=== PATIENT | female | born 1995 | race Caucasian/White ===

== ENCOUNTER 2016-11-20 19:48 | Emergency (ER) | payer BC ==
[~2016-11-20] VITALS: Ht 175.3 cm; Wt 108.7 kg
[~2016-11-20 19:48] MED LIST: SPR28 PO
[2016-11-20 19:50] VITALS: TEMP 36.7; Ht 175.3 cm; Wt 108.7 kg
[2016-11-20] MEDS ORDERED: ONDANSETRON INJ 2 MG/ML 2 ML VIAL IV STA (20:02)
[2016-11-20] MEDS ORDERED: SODIUM CHLORIDE 0.9% 1000ML 1,000 ML IV STA (20:02)
[2016-11-20] MEDS ORDERED: OPTIRAY 320 IV PRN (20:15)
--- NOTE | 2016-11-20 20:18 | EMERGENCY ROOM VISIT NOTE ---
History First contact with patient: 19:53 Chief Complaint: ABDOMINAL PAIN Stated Complaint: RT SIDE PAIN,NAUSEA History of Present Illness The patient is a 21 year old female who presents to the Emergency Room with complaints of abdominal pain. The patient states that yesterday, she had abdominal cramping throughout the day. She has a history of IBS and states that she attributed her symptoms to this. Today, the pain has worsened and moved to the right lower quadrant. She states it is a sharp pain and is worse with walking or bending over. She has associated nausea, but no vomiting. She denies any alleviating or aggravating factors. She has not taken any medication for the symptoms. She denies vaginal bleeding/discharge, changes in bowel movements or urinary symptoms. Her last menstrual period was 2 weeks ago. She rates her discomfort a 9/10. She denies any history of abdominal surgery. Review of Systems A complete 10 point review of systems was reviewed with the patient with pertinent positives and negatives as per history of present illness. All else were negative. Social History Smoking Status: Never Smoker Current/Historical Medications Scheduled Ethinyl Estrad/Norgestimate (Sprintec 28), 1 TAB PO DAILY Physical Exam Vital Signs Date Time Temp Pulse Resp B/P (MAP) Pulse Ox O2 Delivery O2 Flow Rate FiO2 11/20/16 22:04 69 18 135/84 99 11/20/16 20:55 72 16 126/83 99 Room Air 11/20/16 19:50 36.7 86 18 159/112 100 Room Air Physical Exam VITALS: Vitals are noted on the nurse's note and reviewed by myself. Vital signs stable. GENERAL: This is a 21-year-old female, in no acute distress, nondiaphoretic, well-developed well-nourished. MOUTH: Mucous membranes moist. Tonsils are not enlarged. Pharynx without erythema or exudate. Uvula midline. Airway patent. Tongue does not deviate. HEART: Regular rate and rhythm without murmurs gallops or rubs. LUNGS: Clear to auscultation bilaterally without wheezes, rales or rhonchi. ABDOMEN: Positive bowel sounds x 4. Soft, moderate tenderness to palpation of the right lower quadrant. No guarding or rebound tenderness. Positive Rovsing sign. NEURO: Patient was alert and oriented to person place and time. Medical Decision & Procedures ER Provider Diagnostic Interpretation: CT ABD/PELVIS IV CONTRAST ONLY FINDINGS: Lower chest: The heart is normal in size and configuration, without pericardial effusion. The lung bases and pleural spaces are clear. Liver: There is mild hepatic steatosis. No focal masses are visualized. Gallbladder: Unremarkable. Spleen: Normal in size and attenuation. Pancreas: Unremarkable. Adrenal glands: Unremarkable. Kidneys: There is symmetric renal cortical enhancement. The kidneys are normal in size without hydronephrosis. Bowel: There are no transition zones indicate bowel obstruction. The appendix appears normal. There is no acute diverticulitis. Peritoneum: There is no intraperitoneal free air or abdominal ascites. Vasculature: The abdominal aorta is normal in course and caliber. Adenopathy: None. Pelvic viscera: There is a 58 x 52 x 15 mm right ovarian cyst. Skeletal structures: No destructive osseous lesions are seen. IMPRESSION: 1. No evidence of bowel obstruction. No evidence of free air 2. Hepatic steatosis 3. Normal appendix 4. 58 mm right ovarian cyst Laboratory Results 11/20/16 20:20 Red Blood Count 4.58, Mean Corpuscular Volume 88.6, Mean Corpuscular Hemoglobin 30.1, Mean Corpuscular Hemoglobin Concent 34.0, Mean Platelet Volume 8.7, Neutrophils (%) (Auto) 49.4, Lymphocytes (%) (Auto) 40.6, Monocytes (%) (Auto) 6.3, Eosinophils (%) (Auto) 3.2, Basophils (%) (Auto) 0.3, Neutrophils # (Auto) 4.25, Lymphocytes # (Auto) 3.50, Monocytes # (Auto) 0.54, Eosinophils # (Auto) 0.28, Basophils # (Auto) 0.03 11/20/16 20:20 Test 11/20/16 20:20 White Blood Count 8.62 K/uL (4.8-10.8) Red Blood Count 4.58 M/uL (4.2-5.4) Hemoglobin 13.8 g/dL (12.0-16.0) Hematocrit 40.6 % (37-47) Mean Corpuscular Volume 88.6 fL (80-100) Mean Corpuscular Hemoglobin 30.1 pg (25-34) Mean Corpuscular Hemoglobin Concent 34.0 g/dl (32-36) Platelet Count 378 K/uL (130-400) Mean Platelet Volume 8.7 fL (7.4-10.4) Neutrophils (%) (Auto) 49.4 % Lymphocytes (%) (Auto) 40.6 % Monocytes (%) (Auto) 6.3 % Eosinophils (%) (Auto) 3.2 % Basophils (%) (Auto) 0.3 % Neutrophils # (Auto) 4.25 K/uL (1.4-6.5) Lymphocytes # (Auto) 3.50 K/uL (1.2-3.4) Monocytes # (Auto) 0.54 K/uL (0.11-0.59) Eosinophils # (Auto) 0.28 K/uL (0-0.5) Basophils # (Auto) 0.03 K/uL (0-0.2) RDW Standard Deviation 40.6 fL (36.4-46.3) RDW Coefficient of Variation 12.7 % (11.5-14.5) Immature Granulocyte % (Auto) 0.2 % Immature Granulocyte # (Auto) 0.02 K/uL (0.00-0.02) Urine Color YELLOW Urine Appearance CLEAR (CLEAR) Urine pH 6.0 (4.5-7.5) Urine Specific Rice 1.015 (1.000-1.030) Urine Protein NEG (NEG) Urine Glucose (UA) NEG (NEG) Urine Ketones NEG (NEG) Urine Occult Blood NEG (NEG) Urine Nitrite NEG (NEG) Urine Bilirubin NEG (NEG) Urine Urobilinogen NEG (NEG) Urine Leukocyte Esterase TRACE (NEG) Urine WBC (Auto) 1-5 /hpf (0-5) Urine RBC (Auto) 0-4 /hpf (0-4) Urine Hyaline Casts (Auto) 1-5 /lpf (0-5) Urine Epithelial Cells (Auto) >30 /lpf (0-5) Urine Bacteria (Auto) 1+ (NEG) Urine Test NEG (NEG) Anion Gap 9.0 mmol/L (3-11) Est Creatinine Clear Calc Drug Dose 135.5 ml/min Estimated GFR () 111.1 Estimated GFR (Non- 95.9 BUN/Creatinine Ratio 13.4 (10-20) Calcium Level 9.4 mg/dl (8.5-10.1) Total Bilirubin 0.2 mg/dl (0.2-1) Aspartate Amino Transf (AST/SGOT) 17 U/L (15-37) Alanine Aminotransferase (ALT/SGPT) 32 U/L (12-78) Alkaline Phosphatase 59 U/L (45-117) Total Protein 7.6 gm/dl (6.4-8.2) Albumin 3.7 gm/dl (3.4-5.0) Globulin 3.9 gm/dl (2.5-4.0) Albumin/Globulin Ratio 0.9 (0.9-2) Lipase 193 U/L (73-393) Medications Administered Medications (Trade) Dose Ordered Sig/Isrrael Route Start Time Stop Time Status Last Admin Dose Admin Sodium Chloride 1,000 ml @ 999 mls/hr Q1H1M STAT IV 11/20/16 20:02 11/20/16 21:02 DC 11/20/16 20:19 999 MLS/HR Ondansetron HCl (Zofran Inj) 4 mg NOW STAT IV 11/20/16 20:02 11/20/16 20:05 DC 11/20/16 20:20 4 MG Morphine Sulfate (MoRPHine SULFATE INJ) 6 mg NOW STAT IV 11/20/16 20:02 11/20/16 20:05 DC 11/20/16 20:20 3 MG ED Course The patient was evaluated as above. Labs were drawn and IV access was obtained. Patient was medicated with 6 mg morphine, 4 mg Zofran and 1 L normal saline solution. CT of the abdomen and pelvis was performed and read by radiology as above. Patient was reevaluated and felt much better. Findings were discussed with patient at this time. She will be discharged. Discharge instructions were reviewed with the patient. The patient verbalized understanding of my assessment and treatment plan and was discharged home in good condition. Medical Decision Differential diagnosis includes appendicitis, ovarian cyst, ovarian torsion, kidney stone, urinary tract infection, among others. The patient is a 21-year-old female who presents today complaining of right lower quadrant abdominal pain. Labs were unremarkable. There is no leukocytosis. CT of the abdomen and pelvis was performed and showed a large right ovarian cyst. I am not suspicious of torsion. Patient will be treated conservatively and was instructed to follow-up with her DIRECTOR OF RECRUITMENT. She was educated regarding the risk of torsion and will return as needed. The patient and her mother were agreeable to this treatment plan. Based on the patient's presentation and work up, I feel the patient is stable for outpatient treatment. The patient was educated to return to the emergency department for any worsening of their current condition or new/concerning symptoms. She will follow up with her DIRECTOR OF RECRUITMENT. Medication Reconcilliation Current Medication List: was personally reviewed by me Blood Pressure Screening Patient's blood pressure: Elevated blood pressure Blood pressure disposition: Elevated BP felt to be situational Impression Primary Impression: Ovarian cyst Departure Information Dispostion Home / Self-Care Condition GOOD Referrals Wilmer Mendez M.D. (PCP) Patient Instructions My [facility] Additional Instructions You have been treated in the Emergency Department for your Abdominal Pain. Laboratory results and imaging studies have ruled out any emergent causes for your abdominal pain which would warrant admission or surgery. Ultrasound did show a right-sided ovarian cyst. For pain control, you can use the following [id number] medicines (if >12 yo): - Regular strength (325mg/tab) Tylenol (acetaminophen) 2 tabs every 4-6 hours as needed. Do not exceed 12 tablets in a 24 hour period. Avoid taking more than 4 grams (4000 mg) of Tylenol per day. This includes any other sources of acetaminophen you may take on a regular basis. - Regular strength (200 mg/tab) Advil (ibuprofen) 4 tabs every 6 hours as needed. Do not exceed a dose of 3200 mg per day. Drink plenty of water and stay well hydrated. Call your DIRECTOR OF RECRUITMENT to schedule follow-up. Return to the emergency department if your symptoms persist despite treatment plan outlined above or if the following symptoms occur: Significantly worsening abdominal pain, vomiting, fevers, or any other new/concerning symptoms.
[2016-11-20] MEDS: MoRPHine SULFATE 10 MG/ML CARP/VIAL IV STA (20:20)
[2016-11-20 20:34] LABS: BASO % 0.3 %; BASO ABS # 0.03 K/uL (0-0.2); COMPLETE YES; EOS % 3.2 %; HEMATOCRIT 40.6 % (37-47); IG% 0.2 %; LYMPH % 40.6 %; MEAN CELL VOLUME 88.6 fL (80-100); MEAN CORPUSCULAR HEMOGLOBIN 30.1 pg (25-34); MEAN PLATELET VOLUME 8.7 fL (7.4-10.4); MONO % 6.3 %; NEUT % 49.4 %; PLATELET COUNT 378 K/uL (130-400); RED BLOOD COUNT 4.58 M/uL (4.2-5.4); WHITE BLOOD COUNT 8.62 K/uL (4.8-10.8)
[2016-11-20 20:44] LABS: URINE APPEARANCE CLEAR (CLEAR); URINE BILIRUBIN NEG (NEG); URINE COLOR YELLOW; URINE EPITHELIAL CELL AUTO >30 /lpf (0-5); URINE NITRITE NEG (NEG); URINE SPECIFIC GRAVITY 1.015 (1.000-1.030); UROBILINOGEN NEG (NEG); ZZUR CULT IF INDIC CLEAN CATCH YES
[2016-11-20 20:51] LABS: BUN/CREATININE RATIO 13.4 (10-20); CALCIUM 9.4 mg/dl (8.5-10.1); CREATININE 0.87 mg/dl (0.60-1.20); POTASSIUM 4.1 mmol/L (3.5-5.1)
[2016-11-20 20:52] LABS: MANUAL MICROSCOPIC REQUIRED? NO; REVIEW REQ? NO
[2016-11-20 20:54] LABS: ALB/GLOB RATIO 0.9 (0.9-2)
--- NOTE | 2016-11-20 21:21 | DIAGNOSTIC IMAGING REPORT ---
CT ABD/PELVIS IV CONTRAST ONLY CLINICAL HISTORY: Right lower quadrant abdominal pain. Nausea. COMPARISON STUDY: None. TECHNIQUE: Following the IV administration of 93 mL of Optiray-320, CT scan of the abdomen and pelvis was performed from the lung bases to the proximal femurs. Images are reviewed in the axial, sagittal, and coronal planes. IV contrast was administered without complication. A dose lowering technique was utilized adhering to the principles of ALARA. CT DOSE: 1258.90 mGy.cm FINDINGS: Lower chest: The heart is normal in size and configuration, without pericardial effusion. The lung bases and pleural spaces are clear. Liver: There is mild hepatic steatosis. No focal masses are visualized. Gallbladder: Unremarkable. Spleen: Normal in size and attenuation. Pancreas: Unremarkable. Adrenal glands: Unremarkable. Kidneys: There is symmetric renal cortical enhancement. The kidneys are normal in size without hydronephrosis. Bowel: There are no transition zones indicate bowel obstruction. The appendix appears normal. There is no acute diverticulitis. Peritoneum: There is no intraperitoneal free air or abdominal ascites. Vasculature: The abdominal aorta is normal in course and caliber. Adenopathy: None. Pelvic viscera: There is a 58 x 52 x 15 mm right ovarian cyst. Skeletal structures: No destructive osseous lesions are seen. IMPRESSION: 1. No evidence of bowel obstruction. No evidence of free air 2. Hepatic steatosis 3. Normal appendix 4. 58 mm right ovarian cyst Electronically signed by: Jose Raul Cabrales M.D. 11/20/2016 9:20 PM Dictated Date/Time: 11/20/2016 9:16 PM
[2016-11-20 22:04] VITALS: BP 135/84; PULSE 69; O2SAT 99
== END 2016-11-20 22:06 | disposition home or self-care (01) ==
LOC: C.EDB 19:49 → C.EDC 22:06
DX: N83.201 Unspecified ovarian cyst, right side (principal); K76.0 Fatty (change of) liver, not elsewhere classified

== ENCOUNTER → 2017-04-28 | Outpatient (CLI) | payer BC ==
[~2017-04-28] MED LIST changes: +IMD/2 PO
== END | disposition home or self-care (01) ==
LOC: C.LABSPEC 10:20
PROVIDERS: ATTEND Physician Assistant
DX: Z01.419 Encounter for gynecological examination (general) (routine) without abnormal findings (principal)

== ENCOUNTER → 2017-04-28 | Outpatient (CLI) | payer BC | END | disposition home or self-care (01) | LOC: C.PAPS 11:58 | PROVIDERS: ATTEND Physician Assistant | DX: Z01.419 Encounter for gynecological examination (general) (routine) without abnormal findings (principal); R87.611 Atypical squamous cells cannot exclude high grade squamous intraepithelial lesion on cytologic smear of cervix (ASC-H) ==

== ENCOUNTER → 2017-06-28 | Outpatient (CLI) | payer BC ==
[~2017-06-28] MED LIST changes: -IMD/2 PO
== END | disposition home or self-care (01) ==
LOC: C.PATHSPEC 15:34
PROVIDERS: ATTEND Obstetrics & Gynecology
DX: N87.0 Mild cervical dysplasia (principal)

== ENCOUNTER → 2017-06-28 | Outpatient (CLI) | payer BC ==
--- NOTE | 2017-06-28 11:22 | DIAGNOSTIC IMAGING REPORT ---
TEMPORAL ORB/SELLA/TEMP W/O CLINICAL HISTORY: 22 years-old Female presenting with M26.609 TMJ (temporomandibular joint syndrome)SEVERE RIGHT-SIDED, right otalgia. TECHNIQUE: Multidetector CT of the temporal bones was performed without the use of intravenous contrast. IV contrast: None. A dose lowering technique was used consistent with the principles of ALARA (as low as reasonably achievable). COMPARISON: None. CT DOSE (mGy.cm): The estimated cumulative dose is 464.39 mGy.cm. FINDINGS: Special Procedure Technologist topogram: Unremarkable. Temporomandibular joints intact. No evidence of advanced degenerative change of the mandibular joints. No mandibular fracture. Orbits intact. Mild polypoid mucosal thickening in the left maxillary sinus. Remainder of paranasal sinuses and mastoid air cells clear. Inner ears structures normal bilaterally. No ossicular disruption in the middle ears. External auditory canal contains cerumen on the right. Temporal mandibular membranes normal bilaterally. Upper cervical spine normal. No convincing evidence of periapical lucency or endodontic disease of the maxillary teeth. Mandibular teeth not visualized. IMPRESSION: No abnormality of the temporomandibular joints. Essentially normal CT examination of the temporal bones apart from cerumen in the right external auditory canal. Electronically signed by: Wilmer Strong M.D. 06/28/2017 11:21 AM Dictated Date/Time: 06/28/2017 11:17 AM
== END | disposition home or self-care (01) ==
LOC: C.CTS 10:47
PROVIDERS: ATTEND Physician Assistant
DX: M26.609 Unspecified temporomandibular joint disorder, unspecified side (principal); H92.01 Otalgia, right ear

== ENCOUNTER → 2017-08-16 | Outpatient (CLI) | payer BC ==
--- NOTE | 2017-08-16 15:13 | MAMMOGRAPHY REPORT ---
ULTRASOUND OF LEFT BREAST: 08/16/2017 CLINICAL HISTORY: The patient reports a tender lump in her left breast for approximately 1.5 weeks. She just finished her menstrual period. COMPARISON: No prior exams were available for comparison. TECHNIQUE: Real-time targeted ultrasound of the left breast was performed. FINDINGS: Real-time, high-resolution targeted ultrasound was performed of the area of the palpable promise mp pointed out by the patient, in the left breast at approximately 2:00, 6 cm from the nipple. Sonog raphically normal tissue is seen in this region, without evidence of a mass or other suspicious sonog raphic abnormality. IMPRESSION: ACR BI-RADS CATEGORY 1: NEGATIVE No suspicious sonographic abnormality at the site of the palpable left 2:00 breast lump pointed out b y the patient. There is no sonographic evidence of malignancy. Recommend clinical follow-up; any d ecision to biopsy should be based on clinical grounds. The patient was verbally notified of the resu lts. Kathia Lancaster M.D. ah/:08/16/2017 09:12:25 Machine Packager: Kathia Lancaster MD, [facility] letter sent: Normal 1/2 BI-RADS Code: ACR BI-RADS Category 1: Negative
== END | disposition home or self-care (01) ==
LOC: C.MAMM 08:47
PROVIDERS: ATTEND Physician Assistant
DX: N63.21 Unspecified lump in the left breast, upper outer quadrant (principal)

== ENCOUNTER → 2017-12-18 | Outpatient (CLI) | payer BC ==
[~2017-12-18] MED LIST changes: +IMD/2 PO
== END | disposition home or self-care (01) ==
LOC: C.PAPS 14:55
PROVIDERS: ATTEND Obstetrics & Gynecology
DX: N87.0 Mild cervical dysplasia (principal)

== ENCOUNTER 2021-11-03 07:42 | Inpatient (IN) ==
[2021-11-03] MEDS ORDERED: OXYTOCIN 30 UNITS/500 ML BAG IV PRN ×2 (08:35)
--- NOTE | 2021-11-03 08:45 | History & Physical Report ---
Date of Service November 03, 2021 Assessment & Plan (1) Insulin controlled gestational diabetes mellitus (GDM) during : Plan: 26 y/o G1 at 39 4/7 wga presents for IOL for A2GDM VSS Fetus cat 1 Labor - will start pit A2GDM - just had bagel and BG 129, will recheck. If ok, q4 while latent GBS neg epidural PRN Admission and Anticipated Discharge Date Admission Date: November 03, 2021 History of Present Illness Chief Complaint: IOL Primary Care Provider: Wilmer Mendez MD 26 y/o G1 at 39 4/7 wga presents for IOL for A2GDM. +FM; denies regular ctx, LOF, VB. 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 neg cyto, hx colpo denies hx STIs Allergies Allergy/AdvReac Type Severity Reaction Status Date / Time amoxicillin [From Augmentin] AdvReac Intermediate Nausea Verified 11/02/21 10:29 clavulanic acid AdvReac Intermediate Nausea Verified 11/02/21 10:29 [From Augmentin] Home Medications Medication Instructions Recorded Confirmed Type prenat.vits,mikel,ofp-stdg-xwigl 1 tab PO QPM 03/12/21 11/03/21 History acetone (urine) test (Ketone Urine #50 ea 06/21/21 11/02/21 Rx Test) pen needle, diabetic 32 gauge x #50 ea 08/27/21 11/02/21 Rx 5/32" (BD Ultra-Fine Matilde Pen Needle) insulin NPH isoph U-100 human 100 15 unit SUBCUT .at bed time 10/07/21 11/03/21 History unit/mL (3 mL) subcutaneous pen (Novolin N Flexpen) Patient History Medical History Acanthosis nigricans Allergic rhinitis Anxiety Benign paroxysmal vertigo Dysmenorrhea Dysmetabolic syndrome X Elevated LFTs ETD (eustachian tube dysfunction) Hyperinsulinemia Menorrhagia with regular cycle Mild dysplasia of cervix (ABRAHAM I) Neuralgia, geniculate Pigmented purpura Sludge in gallbladder TMJ (temporomandibular joint syndrome) Varicella vaccination Surgical History History of ear surgery S/P tonsillectomy and adenoidectomy S/P wisdom tooth extraction Family History Unknown Breast cancer Grandmother Diabetes Colon cancer Uncle Diabetes Uncle Diabetes Colon cancer Aunt Breast cancer Grandmother Breast cancer Uncle Myocardial infarction Denies family history of Ovarian cancer Prostate cancer Social History Smoking Status: Never smoker Second Hand Exposure: No; Hx Alcohol Use: No Hx Substance Use: No Preferred Language: Bolivian Communication Ability: Effective Visual Impairment: Diminished Hearing Ability: Normal Harbor Tug Captain Required: No Beliefs That Will Affect Care: None marital status: marital status details: VARUN Jean Baptiste [phone] Current Living Situation: Spouse Current Living Situation Comment: lives with spouse, dog current occupational status: employed current occupation: [employer] How many Children do You have: 0 Feels Safe at Home: Yes Safety Concerns: Feels Safe At This Time Childhood Exposure to Second-Hand Smoke: Yes caffeine: No Dental Care, Regularly: Yes Physical Activity Frequency: 5-6 Times per Week Seatbelt Use: always Sunscreen Use: Yes Assistive Devices: None Physical Exam Constitutional: WD/WN, vitals as above Respiratory: normal respiratory effort; no respiratory distress and no labored breathing Genitourinary: OB Exam Abdomen: + vertex and + estimated weight (8-9) Manual OB Exam: + cervical dilation 3 cm, + cervical effacement 50% and + station -2 OB Exam Monitor Tracing: + external FHT monitor used, + external uterine monitor used (irritability) and + category I (145/mod/+accel/-decel) Results & Data ([facility]) Vital Signs (Past 12 Hours) Vital Signs Temp Pulse Resp BP 11/03/21 08:30 82 133/81 11/03/21 07:51 98.2 F 18 Laboratory Results OB Labs: Blood Type O Positive 03/31/21 Antibody Screen NEGATIVE 03/31/21 Hemoglobin 11.7 g/dL (12.0-16.0) L 10/07/21 Hematocrit 34.9 % (37-47) L 10/07/21 Mean Corpuscular Volume 86.2 fL (80-100) 10/07/21 Platelet Count 312 K/uL (130-400) 10/07/21 Rubella IgG Antibody Immune (Immune) 03/31/21 Rapid Plasma Reagin Nonreactive (Nonreactive) 03/31/21 Hepatitis B Surface Antigen Neg (Neg) 03/31/21 Hepatitis C Antibody Neg (Neg) 03/31/21 HIV (1&2) Ab and P24 Ag, 4th Gener Neg (Neg) 03/31/21 Glucose 1 Hour 50 gm Load 153 mg/dl (70-130) H 05/26/21 Maternal Serum Alpha Fetoprotein 19.9 ng/mL 05/26/21 OB Optional Labs: Chlamydia trachomatis RNA NOT DETECTED (NOT DETECTED) 03/31/21 Neisseria gonorrhoeae RNA NOT DETECTED (NOT DETECTED) 03/31/21 Thyroid Stimulating Hormone (TSH) 1.620 uIu/ml (0.300-4.500) 09/02/20 Alpha Fetoprotein Triple Screen SEE NOTE 05/26/21 Labs Reviewed: gbs neg afp neg cf/sma neg low risk panorama Diagnostic Findings 10/21 EFW 3655g 88% ant plac Coding Level of Care Code None Diagnoses Insulin controlled gestational diabetes mellitus (GDM) during O24.414
[2021-11-03] MEDS: LACTATED RINGER'S 1,000 ML IV PRN ×3 (09:36→19:17)
[2021-11-03 09:45] LABS: Hematocrit (blood only) 33.7 % (37-47); Hemoglobin 11.3 g/dL (12.0-16.0); Mean Corpuscular Hemoglobin 28.8 pg (25-34); Mean Corpuscular Hgb Conc 33.5 g/dL (32-36); Mean Corpuscular Volume 85.8 fL (80-100); Mean Platelet Volume 9.3 fL (7.4-10.4); Platelet Count 331 K/uL (130-400); RDW Coefficient of Variation 14.1 % (11.5-14.5); RDW Standard Deviation 43.9 fL (36.4-46.3); Red Blood Count 3.93 M/uL (4.2-5.4); White Blood Count 10.14 K/uL (4.8-10.8)
--- NOTE | 2021-11-03 13:06 | Labor Progress Brief Note ---
Date of Service November 03, 2021 Subjective some back pain Assessment & Plan (1) Insulin controlled gestational diabetes mellitus (GDM) during : Plan: 26 y/o G1 at 39 4/7 wga presents for IOL for A2GDM VSS Fetus cat 1 Labor - pit at12, now s/p arom A2GDM - BG normal, q4 in latent labor GBS neg epidural PRN Admission and Anticipated Discharge Date Admission Date: November 03, 2021 Physical Exam Genitourinary: Manual OB Exam: + cervical dilation (3-4), + cervical effacement 50%, + station -2 and + amniotic fluid (arom clear) OB Exam Monitor Tracing: + external FHT monitor used, + external uterine monitor used (q4, difficult to trace) and + category I (125/mod/+accel/-decel) Results & Data ([facility]) Vital Signs (Past 12 Hours) Vital Signs Temp Pulse Resp BP 11/03/21 12:43 67 124/72 11/03/21 12:00 98.2 F 11/03/21 10:42 74 134/81 11/03/21 10:30 18 11/03/21 09:45 76 135/86 11/03/21 08:30 82 133/81 11/03/21 08:05 98.2 F 18 11/03/21 07:51 98.2 F 18 Coding Level of Care Code None Diagnoses Insulin controlled gestational diabetes mellitus (GDM) during O24.414
[2021-11-03] MEDS ORDERED: ePHEDrine sulfate 50 MG/ML AMP ONE (14:58)
[2021-11-03] MEDS ORDERED: fentaNYL citrate 100 MCG/2 ML VIAL ONE ×2 (14:59→21:44)
[2021-11-03] MEDS ORDERED: fentaNYL 2MCG/ML ROPIVACAINE 1.25MG/ML 100 ML BAG EPI ONE (14:59)
[2021-11-03] MEDS ORDERED: LIDOCAINE 2%/EPINEPHRINE 1:200,000 20 ML SDV ONE (14:59)
[2021-11-03] MEDS ORDERED: SODIUM CHLORIDE 0.9% INJ 10 ML VIAL ONE (14:59)
[2021-11-03] MEDS ORDERED: BUPIVACAINE 0.25% 30 ML VIAL ONE ×2 (14:59→21:44)
[2021-11-03] MEDS ORDERED: NALBUPHINE HCL INJ 10 MG/ML AMP IV PRN (15:06)
[2021-11-03] MEDS ORDERED: NALOXONE HCL 1 MG in SODIUM CHLORIDE 0.9% 1000ML 1,000 ML IV PRN (15:06)
[2021-11-03] MEDS ORDERED: NALOXONE HCL 0.4 MG/1 ML VIAL/CARP IV PRN (15:06)
[2021-11-03] MEDS ORDERED: fentaNYL 2MCG/ML ROPIVACAINE 1.25MG/ML 100 ML BAG EPI PRN (15:06)
[2021-11-03] MEDS ORDERED: ONDANSETRON INJ 2 MG/ML 2 ML VIAL IV PRN (15:06)
[2021-11-03] MEDS ORDERED: diphenhydrAMINE 50 MG/ML VIAL IV PRN (15:06)
[2021-11-03] MEDS ORDERED: ePHEDrine sulfate 50 MG/ML AMP IV PRN (15:06)
--- NOTE | 2021-11-03 15:54 | Anesthesiology Consultation ---
Date of Service November 03, 2021 Assessment & Plan ASA ASA3 Proposed Anesthesia Anesthesia Type: General Risk / Benefits Reviewed With: PT / POA / Parent / Guardian, Accepts Plan and Informed Consent Obtained History Height/Weight Height: 5 ft 9 in Weight: 123.377 kg Allergies Allergy/AdvReac Type Severity Reaction Status Date / Time amoxicillin [From Augmentin] AdvReac Intermediate Nausea Verified 11/02/21 10:29 clavulanic acid AdvReac Intermediate Nausea Verified 11/02/21 10:29 [From Augmentin] Medications Home Medications Medication Instructions Recorded Confirmed Last Taken prenat.vits,mikel,bbr-vctc-eigxg 1 tab PO QPM 03/12/21 11/03/21 11/03/21 acetone (urine) test (Ketone Urine #50 ea 06/21/21 11/02/21 Unknown Test) pen needle, diabetic 32 gauge x #50 ea 08/27/21 11/02/21 Unknown " (BD Ultra-Fine Matilde Pen Needle) insulin NPH isoph U-100 human 100 15 unit SUBCUT .at bed time 10/07/21 11/03/21 11/02/21 unit/mL (3 mL) subcutaneous pen (Novolin N Flexpen) Active Medications Generic Name Dose Route Start Last Admin Trade Name Freq PRN Reason Stop Dose Admin Lactated Ringer's 1,000 mls @ 125 mls/hr 11/03/21 08:35 11/03/21 15:21 Lr IV 11/05/21 08:34 999 mls/hr .Q8H PRN Administration L&D Protocol Protocol Oxytocin 30 units in 500 mls @ 16 mls/hr 11/03/21 08:35 11/03/21 14:45 Pitocin IV 11/05/21 08:34 0.96 units/hr .Q24H PRN 16 mls/hr Labor Induction/Augmentation Titration Protocol 0.96 UNITS/HR Past Medical History Medical History Acanthosis nigricans Allergic rhinitis Anxiety Benign paroxysmal vertigo Dysmenorrhea Dysmetabolic syndrome X Elevated LFTs ETD (eustachian tube dysfunction) Hyperinsulinemia Menorrhagia with regular cycle Mild dysplasia of cervix (ABRAHAM I) Neuralgia, geniculate Pigmented purpura Sludge in gallbladder TMJ (temporomandibular joint syndrome) Varicella vaccination Exercise / Class Metabolic Activity II 4-5 Yardwork/Stairs/Walk up hill Past Family History Family History Unknown Breast cancer Grandmother Diabetes Colon cancer Uncle Diabetes Uncle Diabetes Colon cancer Aunt Breast cancer Grandmother Breast cancer Uncle Myocardial infarction Denies family history of Ovarian cancer Prostate cancer Past Surgical History Surgical History History of ear surgery S/P tonsillectomy and adenoidectomy S/P wisdom tooth extraction Past Anesthesia History No Hx of Anesthesia Complications and No Family Hx of Anesthesia Complications History of PONV No Hx of PONV and No Hx of Motion Sickness Social History Smoking Status: Never smoker Hx Alcohol Use: No Alcohol type: beer, wine and hard liquor Hx Substance Use: No Review of Systems denies fever/cough/ colds/ chest pain/ SOB/ GARCÍA denies GARCÍA Physical Exam Vital Signs Last Vital Signs Temp 36.8 C 11/03/21 12:00 Pulse 67 11/03/21 15:50 Resp 18 11/03/21 15:42 BP 139/71 11/03/21 15:49 Pulse Ox 100 11/03/21 15:50 ENMT Mouth: no TMJ abnormality and no dentition abnormality Thyromental Distance: > or= 3.5 Finger Breadths Mallampati Class: II Neck neck extension not limited Respiratory normal respiratory effort; no respiratory distress Auscultation: lungs clear to auscultation bilaterally Cardiovascular Rate/Rhythm: regular rate and regular rhythm Neurologic moves all extremities Psychiatric Orientation: alert and oriented x 3 Testing Laboratory Results 11/03/21 09:16 11/03/21 11/03/21 11/03/21 10:57 09:45 08:38 POC Glucose 80 124 H 129 H
--- NOTE | 2021-11-03 16:59 | Labor Progress Brief Note ---
Date of Service November 03, 2021 Subjective comfortable w/ epidural Assessment & Plan (1) Insulin controlled gestational diabetes mellitus (GDM) during : Plan: 26 y/o G1 at 39 4/7 wga presents for IOL for A2GDM VSS Fetus cat 1 Labor - s/p srom, pit at 14. Continue induction A2GDM - BG normal, q4 in latent labor GBS neg epidural in place Admission and Anticipated Discharge Date Admission Date: November 03, 2021 Physical Exam Genitourinary: Manual OB Exam: + cervical dilation 4 cm, + cervical effacement 50% and + station -2 (progression noted) OB Exam Monitor Tracing: + external FHT monitor used, + external uterine monitor used (q4) and + category I (120/mod/+accel/-decel) Results & Data ([facility]) Vital Signs (Past 12 Hours) Vital Signs Temp Pulse Resp BP Pulse Ox 11/03/21 16:55 63 97 11/03/21 16:53 58 L 133/69 11/03/21 16:50 60 99 11/03/21 16:45 58 L 100 11/03/21 16:40 66 100 11/03/21 16:37 54 L 127/66 11/03/21 16:35 62 100 11/03/21 16:30 56 L 18 100 11/03/21 16:25 59 L 100 11/03/21 16:22 60 128/71 11/03/21 16:20 59 L 100 11/03/21 16:15 70 100 11/03/21 16:10 67 100 11/03/21 16:07 64 130/70 11/03/21 16:05 60 128/65 100 11/03/21 16:03 58 L 125/71 11/03/21 16:01 57 L 127/69 11/03/21 16:00 56 L 100 11/03/21 15:59 59 L 130/69 11/03/21 15:57 55 L 128/68 11/03/21 15:55 60 133/71 99 11/03/21 15:53 57 L 133/67 11/03/21 15:51 60 135/71 11/03/21 15:50 67 100 11/03/21 15:49 61 139/71 11/03/21 15:47 58 L 133/69 11/03/21 15:45 61 143/77 H 100 07/06/22 15:43 60 137/75 11/03/21 15:42 18 11/03/21 15:40 77 100 11/03/21 15:38 58 L 130/74 11/03/21 15:35 75 99 11/03/21 15:30 72 100 11/03/21 15:25 70 100 11/03/21 15:20 63 155/89 H 100 11/03/21 15:15 70 100 11/03/21 15:05 98.2 F 18 11/03/21 13:48 63 147/83 H 11/03/21 12:43 67 124/72 11/03/21 12:00 98.2 F 11/03/21 10:42 74 134/81 11/03/21 10:30 18 11/03/21 09:45 76 135/86 11/03/21 08:30 82 133/81 11/03/21 08:05 98.2 F 18 11/03/21 07:51 98.2 F 18 Coding Level of Care Code None Diagnoses Insulin controlled gestational diabetes mellitus (GDM) during O24.414
--- NOTE | 2021-11-03 19:34 | Labor Progress Brief Note ---
Date of Service November 03, 2021 Subjective comfortable w/ epidural Assessment & Plan (1) Insulin controlled gestational diabetes mellitus (GDM) during : Plan: 26 y/o G1 at 39 4/7 wga presents for IOL for A2GDM VSS Fetus cat 1 Labor - s/p srom, pit at 18. progress noted, continue induction A2GDM - BG normal, q4 in latent labor GBS neg epidural in place Admission and Anticipated Discharge Date Admission Date: November 03, 2021 Physical Exam Genitourinary: Manual OB Exam: + cervical dilation (4-5), + cervical effacement 70% and + station -1 OB Exam Monitor Tracing: + external FHT monitor used, + intra-uterine pressure catheter used (placed) and + category I (125/mod/+accel/was having early decels) Results & Data ([facility]) Vital Signs (Past 12 Hours) Vital Signs Temp Pulse Resp BP Pulse Ox 11/03/21 19:30 63 99 11/03/21 19:25 55 L 99 11/03/21 19:23 57 L 135/61 11/03/21 19:20 59 L 100 11/03/21 19:15 87 100 11/03/21 19:10 84 99 11/03/21 19:07 54 L 131/82 11/03/21 19:05 60 100 11/03/21 19:02 97.5 F L 20 11/03/21 19:00 62 18 100 11/03/21 18:55 72 100 11/03/21 18:52 55 L 138/85 11/03/21 18:50 61 99 11/03/21 18:45 56 L 98 11/03/21 18:40 57 L 99 11/03/21 18:37 54 L 141/85 H 11/03/21 18:35 57 L 98 11/03/21 18:30 59 L 18 100 11/03/21 18:25 58 L 100 11/03/21 18:23 58 L 141/88 H 11/03/21 18:20 60 100 11/03/21 18:15 62 100 11/03/21 18:10 55 L 100 11/03/21 18:08 55 L 129/82 11/03/21 18:05 58 L 100 11/03/21 18:00 65 18 99 11/03/21 17:55 49 L 100 11/03/21 17:54 46 L 121/62 11/03/21 17:50 53 L 99 11/03/21 17:45 49 L 99 11/03/21 17:40 50 L 99 11/03/21 17:37 50 L 128/69 11/03/21 17:35 51 L 99 11/03/21 17:30 53 L 18 98 11/03/21 17:25 52 L 98 11/03/21 17:22 54 L 114/67 11/03/21 17:20 54 L 98 11/03/21 17:15 53 L 98 11/03/21 17:10 48 L 99 11/03/21 17:08 51 L 114/66 11/03/21 17:05 54 L 99 11/03/21 17:00 60 18 100 11/03/21 16:55 63 97 11/03/21 16:53 58 L 133/69 11/03/21 16:50 60 99 11/03/21 16:45 58 L 100 11/03/21 16:40 66 100 11/03/21 16:37 54 L 127/66 11/03/21 16:35 62 100 11/03/21 16:30 56 L 18 100 11/03/21 16:25 59 L 100 11/03/21 16:22 60 128/71 11/03/21 16:20 59 L 100 11/03/21 16:15 70 100 11/03/21 16:10 67 100 11/03/21 16:07 64 130/70 11/03/21 16:05 60 128/65 100 11/03/21 16:03 58 L 125/71 11/03/21 16:01 57 L 127/69 11/03/21 16:00 56 L 100 11/03/21 15:59 59 L 130/69 11/03/21 15:57 55 L 128/68 11/03/21 15:55 60 133/71 99 11/03/21 15:53 57 L 133/67 11/03/21 15:51 60 135/71 11/03/21 15:50 67 100 11/03/21 15:49 61 139/71 11/03/21 15:47 58 L 133/69 11/03/21 15:45 61 143/77 H 100 07/06/22 15:43 60 137/75 07/06/22 15:42 18 11/03/21 15:40 77 100 11/03/21 15:38 58 L 130/74 11/03/21 15:35 75 99 11/03/21 15:30 72 100 11/03/21 15:25 70 100 11/03/21 15:20 63 155/89 H 100 11/03/21 15:15 70 100 11/03/21 15:05 98.2 F 18 11/03/21 13:48 63 147/83 H 11/03/21 12:43 67 124/72 11/03/21 12:00 98.2 F 11/03/21 10:42 74 134/81 11/03/21 10:30 18 11/03/21 09:45 76 135/86 11/03/21 08:30 82 133/81 11/03/21 08:05 98.2 F 18 11/03/21 07:51 98.2 F 18 Coding Level of Care Code None Diagnoses Insulin controlled gestational diabetes mellitus (GDM) during O24.414
[2021-11-03] MEDS ORDERED: BUPIVACAINE 0.5 % 5 MG/1 ML PF 10ML VIAL ONE (21:47)
[2021-11-03] MEDS ORDERED: LIDOCAINE 2% MPF LOCAL 5 ML VIAL INFIL ONE (21:47)
--- NOTE | 2021-11-03 21:56 | Communication Note ---
Date of Service: November 03, 2021 pt c/o back pain and pressure pain. I gave the patient 2cc of 2% ;idocaine and 4 cc of 0.25% bupivicaine. pt tolerated it well.
--- NOTE | 2021-11-04 00:16 | Delivery Summary ---
Vaginal Delivery Summary Date of Service November 03, 2021 Vaginal Delivery Summary and 2nd Degree LAC PREOPERATIVE DIAGNOSIS: 1. Single intrauterine at 39 4/7 wga 2. A2GDM POSTOPERATIVE DIAGNOSIS: 1. Single intrauterine at 39 4/7 wga 2. A2GDM 3. Delivered PROCEDURE: 1. Normal spontaneous vaginal delivery. SURGEON: Chica Taylor MD ANESTHESIA: Epidural. ESTIMATED BLOOD LOSS: 300 mL FLUIDS: Continuous LR. URINE OUTPUT: None. COMPLICATIONS: None. CONDITION: Stable. INDICATIONS: 26 y/o G1 at 30 4/7 wga presented for IOL due to A2GDM. Espitia bulb was placed the evening prior and expulsed. On arrival she was 3cm. Pitocin was started and she underwent AROM. She received an epidural for pain control. Induction was continued and IUPC placed for more accurate contraction monitoring. She continued to progress to complete and desired to push. FINDINGS: A viable female infant, weight pending with Apgars of 8 and 9 at 1 and 5 minutes respectively. SPECIMEN: Cord blood OPERATIVE REPORT: The patient progressed to 10 cm, 100% effaced and +2 station, pushed over intact perineum with anesthesia to deliver a viable female infant, weight and Apgars as above. Head of delivered in INDU position. Loose nuchal cord was noted and delivered through. Body and shoulders were delivered without difficulty. was delivered to maternal abdomen and nursing staff. Delayed cord clamping was performed for 60 seconds. Cord was clamped and cut. Cord blood was obtained. Placenta delivered spontaneously intact with 3-vessel cord. IV oxytocin and fundal massage were given for excellent hemostasis. Vagina, cervix, perineum, and placenta were inspected. A second degree laceration was repaired using 3-0 vicryl in the usual fashion. An area of bleeding on the right at the introitus was made hemostatic with a figure of eight stitch. There was excellent hemostasis. Sponge and needle counts correct x2. No sponges were left behind. Mother and stable in immediate period. [facility] Vaginal Delivery Charge Vaginal Delivery Codes: 25694 global code for the antepartum, delivery, and post- Delivery Type Details: and 2nd Degree LAC
[2021-11-04] MEDS ORDERED: OXYTOCIN 30 UNITS/500 ML BAG IV PRN (00:17)
[2021-11-04] MEDS ORDERED: BENZOCAINE 20% AER SPR 82.5 GM CAN EXT PRN (00:17)
[2021-11-04] MEDS ORDERED: HYDROCORTISONE ACETATE 25 MG SUPP PR PRN (00:17)
[2021-11-04] MEDS ORDERED: ACETAMINOPHEN 325 MG TAB PO PRN (00:17)
[2021-11-04] MEDS ORDERED: DIPHTHERIA/TETANUS/PERTUSSIS 0.5 ML SYR/VIAL IM ONE (00:17)
[2021-11-04] MEDS ORDERED: bisacodyL 10 MG SUPP PR PRN (00:17)
[2021-11-04] MEDS: IBUPROFEN 600 MG TAB PO PRN ×3 (04:33→13:58)
--- NOTE | 2021-11-04 04:48 | Anesthesia Procedure Note ---
Date of Service November 04, 2021 Anesthesia Post Epidural Note Vital Signs Vital Signs: Temp Pulse Resp BP Pulse Ox 36.8 C 74 18 136/78 99 11/04/21 02:25 11/04/21 02:25 11/04/21 02:25 11/04/21 04:34 11/04/21 02:25 Pain Intensity Lower Back: Pain Intensity: 0 Notes Mental Status: alert / awake / arousable and participated in evaluation Patient Amnestic to Procedure: Yes Nausea / Vomiting: adequately controlled Pain: adequately controlled Airway Patency, RR, SpO2: stable & adequate BP & HR: stable & adequate Hydration State: stable & adequate Anesthetic Complications: no major complications apparent and Pt Satisfied with anesthetic care
--- NOTE | 2021-11-04 07:02 | Obstetrical Progress Note ---
Date of Service November 04, 2021 Assessment & Plan (1) Encounter for care and examination after delivery: 26 yo PP1 from , doing well -Meeting all pp milestones -O+/rubella immune/ -f/u 6 weeks for appt, continue rout pp care Subjective Ambulation: ambulating normally Voiding: no voiding problems Passing Gas:: Yes Diet Tolerance:: regular diet Lochia:: Small Feeding Type:: breast feeding Pain well managed with medication Review of Systems Denies fevers, chills, n/v, MARQUES, CP, SOB Physical Exam Constitutional WD/WN, vitals as above no acute distress Respiratory normal respiratory effort, lungs clear to auscultation Cardiovascular RRR, no murmur, no edema Gastrointestinal (Abdomen) Percussion/Palpation: abdomen soft; abdomen nontender fundus firm at umbilicus and NT Musculoskeletal BLE symmetric, nonerythematous, nontender Results & Data ([facility]) Vital Signs (Past 12 Hours) Vital Signs Temp Pulse Pulse Resp BP BP Pulse Ox 11/04/21 04:34 136/78 11/04/21 02:25 98.2 F 74 18 99 11/04/21 02:10 77 20 132/79 11/04/21 02:07 77 132/79 11/04/21 01:52 80 130/74 11/04/21 01:40 69 18 138/74 11/04/21 01:37 69 138/74 11/04/21 01:23 86 129/67 11/04/21 01:10 75 18 133/64 11/04/21 01:07 75 133/64 11/04/21 00:55 73 18 130/70 11/04/21 00:53 73 130/70 11/04/21 00:40 74 18 135/72 11/04/21 00:38 74 135/72 11/04/21 00:25 74 18 11/04/21 00:23 88 140/79 11/04/21 00:10 68 18 136/66 11/04/21 00:08 68 136/66 11/04/21 00:06 67 99 11/04/21 00:01 74 100 11/03/21 23:56 84 99 11/03/21 23:53 82 155/72 H 11/03/21 23:51 87 100 11/03/21 23:45 89 98 11/03/21 23:40 71 99 11/03/21 23:39 63 175/83 H 11/03/21 23:35 79 100 11/03/21 23:30 75 100 11/03/21 23:29 97 H 93 11/03/21 23:25 79 100 11/03/21 23:23 93 H 150/91 H 11/03/21 23:20 89 18 100 11/03/21 23:15 75 99 11/03/21 23:10 61 99 11/03/21 23:09 59 L 152/89 H 11/03/21 23:05 60 99 11/03/21 23:00 59 L 18 97 11/03/21 22:55 59 L 98 11/03/21 22:52 58 L 141/80 H 11/03/21 22:50 59 L 100 11/03/21 22:45 61 98 11/03/21 22:40 60 99 11/03/21 22:38 57 L 140/79 11/03/21 22:35 61 98 11/03/21 22:30 98.4 F 56 L 18 97 11/03/21 22:25 59 L 98 11/03/21 22:24 59 L 150/78 H 11/03/21 22:20 57 L 97 11/03/21 22:15 72 100 11/03/21 22:10 60 100 11/03/21 22:07 59 L 150/90 H 92 11/03/21 22:05 57 L 149/92 H 100 11/03/21 22:03 55 L 149/92 H 11/03/21 22:01 55 L 149/95 H 11/03/21 22:00 59 L 18 98 11/03/21 21:59 64 146/99 H 11/03/21 21:58 76 149/97 H 11/03/21 21:55 58 L 136/76 100 11/03/21 21:50 71 99 11/03/21 21:45 59 L 95 11/03/21 21:44 52 L 93 11/03/21 21:40 81 97 11/03/21 21:39 56 L 93 11/03/21 21:38 63 139/80 11/03/21 21:35 54 L 95 11/03/21 21:30 55 L 98 11/03/21 21:29 20 11/03/21 21:25 60 100 11/03/21 21:23 57 L 144/83 H 11/03/21 21:20 61 100 11/03/21 21:15 77 98 11/03/21 21:11 54 L 93 11/03/21 21:10 53 L 96 11/03/21 21:09 52 L 146/87 H 11/03/21 21:05 77 100 11/03/21 21:00 98.1 F 58 L 18 98 11/03/21 20:55 56 L 99 11/03/21 20:53 51 L 152/88 H 11/03/21 20:50 55 L 99 11/03/21 20:45 59 L 99 11/03/21 20:40 79 97 11/03/21 20:37 50 L 129/70 11/03/21 20:35 64 100 11/03/21 20:30 57 L 20 100 11/03/21 20:25 55 L 100 11/03/21 20:24 56 L 136/74 11/03/21 20:20 59 L 100 11/03/21 20:15 58 L 100 11/03/21 20:10 60 100 11/03/21 20:08 57 L 131/70 11/03/21 20:05 65 98 11/03/21 20:00 93 H 18 100 11/03/21 19:55 56 L 100 11/03/21 19:54 56 L 139/79 11/03/21 19:50 59 L 100 11/03/21 19:45 58 L 100 11/03/21 19:40 56 L 100 11/03/21 19:38 55 L 128/77 11/03/21 19:35 61 100 11/03/21 19:30 63 99 11/03/21 19:25 55 L 99 11/03/21 19:23 57 L 135/61 11/03/21 19:20 59 L 100 11/03/21 19:15 87 100 11/03/21 19:10 84 99 11/03/21 19:07 54 L 131/82 11/03/21 19:05 60 100 11/03/21 19:02 97.5 F L 20
[2021-11-04] MEDS: FERROUS SULFATE 325 MG TAB PO SCH (08:48)
[2021-11-04] MEDS: PRENATAL VITAMIN 1 TAB PO SCH (08:49)
[2021-11-04] MEDS: DOCUSATE SODIUM 100 MG CAP PO SCH ×2 (08:49→20:09)
[2021-11-05] MEDS: IBUPROFEN 600 MG TAB PO PRN ×2 (03:10→08:20)
--- NOTE | 2021-11-05 07:16 | Obstetrical Progress Note ---
Date of Service November 05, 2021 Assessment & Plan (1) Encounter for care and examination after delivery: meets criteria, home Subjective Ambulation: ambulating normally Voiding: no voiding problems Passing Gas:: Yes Diet Tolerance:: regular diet Lochia:: Small Results & Data ([facility]) Vital Signs (Past 12 Hours) Vital Signs Temp Pulse Resp BP Pulse Ox 11/05/21 05:11 130/80 11/04/21 22:58 97.7 F 73 18 142/89 H 97 11/04/21 20:44 132/80
[2021-11-05] MEDS: DOCUSATE SODIUM 100 MG CAP PO SCH (08:20)
[2021-11-05] MEDS: PRENATAL VITAMIN 1 TAB PO SCH (08:20)
[2021-11-05] MEDS: FERROUS SULFATE 325 MG TAB PO SCH (08:21)
[2021-11-05] MEDS ORDERED: bisacodyL 5 MG TABEC PO SCH (20:00)
== END 2021-11-05 11:18 | disposition home or self-care (01) | DRG 807 ==
LOC: 4S1 07:42 → 4E2 11-04 02:27